=== PATIENT | male | born 1960 | race Caucasian/White ===

== ENCOUNTER 2017-03-13 20:34 | Observation (INO) | payer SELFPAY ==
--- NOTE | 2017-03-13 21:08 | CPEKG ---
Heart Rate: 77 RR Interval: 779 P-R Interval: 164 QRSD Interval: 94 QT Interval: 404 QTC Interval: 458 P Pomeroy: 60 QRS Pomeroy: -51 T Wave Pomeroy: 54 EKG Severity - ABNORMAL ECG - EKG Impression: SINUS RHYTHM EKG Impression: LEFT ANTERIOR FASCICULAR BLOCK Electronically Signed By: Simeon Martinez 14-Mar-2017 10:55:40
--- NOTE | 2017-03-13 21:09 | EDPHY ---
H & P Stated Complaint: HTN HPI/ROS: CHIEF COMPLAINT: Hypertension HISTORY OF PRESENT ILLNESS: Patient complains of elevated blood pressure over the last 2-3 days. He notes a blood pressure as high as 215/130 by his own home cuff. He has had no headache, no chest pain, no shortness of breath. No decrease in urine output. No abdominal pain. No symptoms of any kind. He does felt that the blood pressure was high so he has been checking it. He is on multiple medications that he route of nearly 2 months ago. He does not know exactly which ones they were, but thinks 1 was lisinopril and 1 was labetalol. He does not know the dosing. He does not know what the other ones were. He has no other associated complaints or modifying factors for this. REVIEW OF SYSTEMS: Ten systems reviewed and are negative unless otherwise noted in the HPI PERTINENT MEDICAL HISTORY: Hypertension, off of medications SOCIAL HISTORY: Nonsmoker, nondiabetic EXAMINATION General Appearance: Alert, no distress Head: normocephalic, atraumatic Eyes: Pupils equal and round, no conjunctival pallor or injection. EOMs intact. No nystagmus. ENT, Mouth: Mucous membranes moist Neck: Normal inspection, supple, non-tender Respiratory: Lungs are clear to auscultation. No wheezing, rhonchi or crackles Cardiovascular: Regular rate and rhythm. No murmur. Pulses intact distally. Gastrointestinal: Abdomen is soft and nontender Back: non-tender, no bony abnormalities Neurological: GCS 15. A&O, nonfocal, normal gait. Strength is symmetric in all 4 limbs. No pronator drift. No dysmetria. Symmetric patellar reflexes Skin: Warm and dry, no rash Extremities: Nontender, no pedal edema Psychiatric: Mood and affect normal DIFFERENTIAL DIAGNOSES: Including but not limited to hypertensive urgency, hypertensive emergency, ACS, a KI, electrolyte disturbance, hypervolemia MDM: 9:05 p.m. Hypertension with systolic as high as 230 mm and diastolic as high as 125 mm. At this time is completely asymptomatic. No headache or chest pain. No in cephalopathy on examination. EKG is unremarkable. Laboratory studies are pending. Patient ran out of his medications 9:45 p.m. The troponin is slightly elevated. He is completely asymptomatic and has not had any chest pain of any kind. However, given his hypertensive by his we will treat him as a hypertensive emergency. I have ordered a Rubén pattersonip. Proceed with admission to the hospital, ICU bed. 10:20 p.m. I discussed case with the hospitalist Dr. Anguiano. She will admit the patient to a PCU bed. He is admitted in stable condition with the Cardene drip still being titrated for effect. He still remains asymptomatic. Specifically no chest pain. EKG is unremarkable and interpreted by Dr. Parikh. SUPERVISION: Patient was evaluated in conjunction with the supervising physician. Please see their note for details. Source: Patient Exam Limitations: No limitations - Personal History Current Tetanus/Diphtheria Vaccine: Yes Current Tetanus Diphtheria and Acellular Pertussis (TDAP): Yes - Medical/Surgical History Hx Asthma: Yes Hx Chronic Respiratory Disease: No Hx Diabetes: No Hx Cardiac Disease: No Hx Renal Disease: No Hx Cirrhosis: No Hx Alcoholism: No Hx HIV/AIDS: No Hx Splenectomy or Spleen Trauma: No Other PMH: HTN, CVA 2012, DVT - Social History Smoking Status: Former smoker Constitutional: Initial Vital Signs Temperature (C) 99.3 F 03/13/17 20:36 Heart Rate 79 03/13/17 20:36 Respiratory Rate 14 03/13/17 20:36 Blood Pressure 230/120 H 03/13/17 20:36 O2 Sat (%) 94 03/13/17 20:36 O2 Delivery Mode Nasal Cannula O2 (L/minute) 2 Allergies/Adverse Reactions: No Known Allergies Allergy (Unverified 03/13/17 20:36) Home Medications: Medication Instructions Recorded NK [No Known Home Meds] 03/13/17 Medical Decision Making - Diagnostics Imaging Results: Imaging Impressions Extremity Venous Study 03/13/17 21:17 Impression: 1. No evidence of acute deep vein thrombosis in the right lower extremity. 2. Chronic nonocclusive thrombus in the distal thigh and knee. Results discussed with Jimmy Coulter. - Data Points Laboratory Results: Laboratory Results 03/13/17 21:05 03/13/17 21:05 03/13/17 03/13/17 21:05 21:05 WBC 7.39 10^3/uL 10^3/uL (3.80-9.50) RBC 5.36 10^6/uL 10^6/uL (4.40-6.38) Hgb 16.5 g/dL g/dL (13.7-17.5) Hct 47.9 % % (40.0-51.0) MCV 89.4 fL fL (81.5-99.8) MCH 30.8 pg pg (27.9-34.1) MCHC 34.4 g/dL g/dL (32.4-36.7) RDW 13.9 % % (11.5-15.2) Plt Count 147 10^3/uL L 10^3/uL (150-400) Sodium 143 mEq/L mEq/L (134-144) Potassium 3.6 mEq/L mEq/L (3.5-5.2) Chloride 107 mEq/L mEq/L (97-110) Carbon Dioxide 24 mEq/l mEq/l (22-31) Anion Gap 12 mEq/L mEq/L (8-16) BUN 20 mg/dL mg/dL (7-23) Creatinine 1.3 mg/dL mg/dL (0.7-1.3) Estimated GFR 58 Glucose 109 mg/dL H mg/dL (70-100) Calcium 9.7 mg/dL mg/dL (8.5-10.4) Troponin I 0.043 ng/mL H ng/mL (0-0.034) Medications Given: Discontinued Medications Nicardipine/Sodium Chloride (Cardene 0.1 Mg/Ml (Premix)) 200 mls @ 0 mls/hr IV CONT PARAG; Titrate PRN Reason: Protocol Stop: 09/09/17 21:59 Last Admin: 03/13/17 22:28 Dose: 200 mls Lisinopril (Zestril) 20 mg PO EDNOW ONE Stop: 03/13/17 21:27 Last Admin: 03/13/17 21:35 Dose: 20 mg Departure - Departure Disposition: [facility] In[facility] Acute Clinical Impression: Hypertensive emergency, Elevated troponin Condition: Good Referrals: NONE *PRIMARY CARE P,. [Primary Care Provider] - As per Instructions
[2017-03-13 21:15] LABS: HEMATOCRIT 47.9 % (40.0-51.0); HEMOGLOBIN 16.5 g/dL (13.7-17.5); MEAN CELL HEMOGLOBIN 30.8 pg (27.9-34.1); MEAN CELL HEMOGLOBIN CONCENTR. 34.4 g/dL (32.4-36.7); MEAN CELL VOLUME 89.4 fL (81.5-99.8); RED BLOOD CELL COUNT 5.36 10^6/uL (4.40-6.38); RED CELL DISTRIBUTION WIDTH 13.9 % (11.5-15.2)
[2017-03-13 21:26] LABS: ANION GAP 12 mEq/L (8-16); CALCIUM 9.7 mg/dL (8.5-10.4); CARBON DIOXIDE 24 mEq/l (22-31); CHLORIDE 107 mEq/L (97-110); CREATININE 1.3 mg/dL (0.7-1.3); GLOMERULAR FILTRATION RATE 58; GLUCOSE 109 mg/dL (70-100); POTASSIUM 3.6 mEq/L (3.5-5.2); SODIUM 143 mEq/L (134-144)
[2017-03-13] MEDS ORDERED: LISINOPRIL 20 MG TAB PO ONE (21:26)
[2017-03-13] MEDS ORDERED: LABETALOL HCL 100 MG TAB PO ONE (21:26)
[2017-03-13 21:38] LABS: TROPONIN I 0.043 ng/mL (0-0.034)
[2017-03-13] MEDS: niCARdipine/NACL 200 ML IV SCH ×4 (21:55→23:35)
[2017-03-13] MEDS ORDERED: ONDANSETRON 4 MG/2 ML VIAL IVP PRN (22:17)
[2017-03-13] MEDS ORDERED: ONDANSETRON DISINTEGRATING 4 MG TAB PO PRN (22:17)
[2017-03-13] MEDS ORDERED: ACETAMINOPHEN 325 MG TAB PO PRN (22:17)
--- NOTE | 2017-03-13 23:55 | GHP ---
[f rep st] HISTORY AND PHYSICAL DATE OF ADMISSION: 03/13/2017 CHIEF COMPLAINT: Elevated blood pressure. HISTORY OF PRESENT ILLNESS: A 56-year-old male with long-standing hypertension who presents after c hecking his blood pressures at home and noting they were elevated. The patient was presenting to [facility] emergency department with hopes of getting medication refills. The patient is currently residing in both [place], [place], as well as [place] and has been unable to establish a primary care provid er in either. So, has been away from taking his regular blood pressure medications for many weeks. The patient has been well educated on salt restricted diet, activity, and cardiac health overall. However, has been traveling and unable to attend to medication compliance in between [place] and [facility]. In the emergency department, the patient denies any chest pain, shortness of breath. Has not ed some mild headache. Denies vision changes, dysphagia fevers, chills. Denies abdominal discomfor t, nausea, vomiting, diarrhea, dysuria. Did notice some darkening in his urine but denies any hemat uria. Denies any lower extremity edema. PAST MEDICAL HISTORY: 1. Poorly controlled hypertension. 2. History of stroke without remnant deficits. 3. Dementia. The patient reports is vascular in nature since his stroke. 4. Type 2 diabetes, diet controlled. SOCIAL HISTORY: Negative for tobacco, alcohol. The patient does smoke occasional marijuana. Denie s any stimulant drugs. FAMILY HISTORY: Positive for hypertension and stroke in his mother who in her 50s. ADVANCED DIRECTIVES: Patient is full cor, full tube. His [id number] would be his medical decis ion maker. REVIEW OF SYSTEMS: A 10-point review of systems is negative with the exception of that reported in the HPI. PHYSICAL EXAMINATION: VITAL SIGNS: Blood pressure 217/137, heart rate 75, respiratory rate 18, 96% on room air. GENERAL: This is a healthy-appearing middle-aged male in no acute distress. HEENT: Notable for moist mucous membranes. Eye exam is negative for any icterus. CARDIAC: Patient is re gular rate and rhythm. No murmurs, gallops, or rubs. PULMONARY: Patient has good respiratory effo rt, is clear to auscultation bilaterally. GASTROINTESTINAL: Positive bowel sounds. ABDOMEN: Soft and nontender in all 4 quadrants. MUSCULOSKELETAL: Notable for trace lower extremity edema. SKIN: Exam is negative for any rashes. NEUROLOGIC: Patient is alert and oriented x3. PSYCHIATRIC : He is pleasant and cooperative on interview and examination. DATA: White count 7.3, creatinine 1.3. Troponin 0.043. EKG, which I personally reviewed and interpreted, shows sinus rhythm, leftward axis deviation, with no acute ST-T changes. ASSESSMENT AND PLAN: This is a 56-year-old male presenting with elevated blood pressure. 1. Hypertensive emergency. The patient is presenting with headache and troponin elevation. We do not have baselines to know if he chronically has indeterminate troponins. Must consider this acute end-organ damage until we establish otherwise. Will admit the patient to the PCU, placed on a nicar dipine drip with a goal of systolic blood pressures between 160 and 170. Will start oral labetalol in the morning in hopes of transitioning off the nicardipine on to an oral regimen he can continue a t home. Will trend troponins, check a urinalysis and follow the patient on telemetry. 2. Indeterminate troponin. Patient's EKG is benign. Patient does not have symptoms. Again, will trend his troponins to verify that they are not trending upwards. Can make decisions on additional risk stratification based on his troponin excursion overnight. The patient reports he has had multi ple transthoracic echocardiograms that have not shown any abnormalities. Without symptoms, I do not think we need that imaging overnight. 3. Prophylaxis with Lovenox. DIET: Cardiac. DISPOSITION: I expect in less than 2 midnights if the patient's blood pressures respond well to dri p titration and oral medication initiation. I have discussed the case with the emergency room physi garima. Patient will be triaged to the PCU for nicardipine drip and cardiac monitoring. /[id number]/MODL
[2017-03-14] MEDS: niCARdipine/NACL 200 ML IV SCH ×4 (01:42→07:49)
[2017-03-14 04:11] LABS: ANION GAP 8 mEq/L (8-16); CALCIUM 8.9 mg/dL (8.5-10.4); CARBON DIOXIDE 22 mEq/l (22-31); CHLORIDE 112 mEq/L (97-110); CREATININE 1.1 mg/dL (0.7-1.3); GLOMERULAR FILTRATION RATE > 60; GLUCOSE 102 mg/dL (70-100); POTASSIUM 3.1 mEq/L (3.5-5.2); SODIUM 142 mEq/L (134-144)
[2017-03-14 04:22] LABS: TROPONIN I 0.052 ng/mL (0-0.034)
[2017-03-14 07:46] VITALS: RESP 16
[2017-03-14] MEDS ORDERED: ENOXAPARIN 40 MG/0.4 ML SYR SC SCH (09:00)
[2017-03-14] MEDS ORDERED: LABETALOL HCL 100 MG TAB PO SCH (09:00)
[2017-03-14] MEDS ORDERED: hydrALAZINE 20 MG/ML VIAL IVP PRN (11:35)
[2017-03-14] MEDS ORDERED: POTASSIUM CL 20 MEQ TAB PO ONE (11:37)
[2017-03-14 12:05] VITALS: BP 129/73; PULSE 65; TEMP 98.6; O2SAT 90
[2017-03-14] MEDS ORDERED: REGADENOSON 0.4 MG/5 ML SYR IVP ONE (13:00)
--- NOTE | 2017-03-14 14:51 | CPR ---
[f rep st] NONINVASIVE CARDIAC PROCEDURE REPORT DATE OF PROCEDURE: 03/14/2017 PROCEDURE: Nuclear Lexiscan stress test. REASON FOR TEST: 1. Elevated troponin. 2. Family history of premature coronary artery disease. FINDINGS: Resting blood pressure is 138/74, oxygen saturation 94%. EKG shows a sinus bradycardia with a rate of 57. He has an incomplete right bundle branch block, le ft atrial fascicular block. He is asymptomatic at this time. STRESS PORTION: Lexiscan was injected rapidly followed by saline flush. Cardiolite was then inject ed by saline flush by protocol. He did flush and was short of breath after the injection. He had n o EKG changes. Peak blood pressure 150/80, peak heart rate 84, oxygen saturation 93%. No ischemic changes noticed on the EKG. RECOVERY: He did spontaneously recover. He did have some caffeine, and the symptoms subsided. Fin al blood pressure 140/80, heart rate 80, oxygen saturation 95%. No EKG changes. At this time, he c urrently is stable for nuclear imaging. /[id number]/MODL
--- NOTE | 2017-03-14 15:01 | GDS ---
[f rep st] DISCHARGE SUMMARY DISCHARGE DIAGNOSES: 1. Hypertensive urgency. 2. Mild troponin elevation with normal stress test. 3. Uncontrolled hypertension. HISTORY: This is a 56-year-old male with a history of hypertension. He has not taken medications i n the last several months. He does not have insurance. He came in with headache. HOSPITAL COURSE: Patient did have markedly elevated blood pressures and a positive troponin that wa s mildly elevated. Discs remain flat. With blood pressure control, his headache resolved. He has never had any chest pain. He did undergo stress testing, which was negative. His blood pressures a re good control, will discharge him home. He says that he is usually on 5 different antihypertensives; however, with just labetalol, his blood pressure is down in the 120s. I am going to send him home both on labetalol and lisinopril/hydroch lorothiazide, and he can follow up with [facility] or measure hiss blood pressure regularly. DISPOSITION: Home. DISCHARGE MEDICATIONS: Labetalol and lisinopril. FOLLOWUP INSTRUCTIONS: He is instructed to follow up with [facility]. /[id number]/MODL
[2017-03-14] MEDS ORDERED: PNEUMOCOCCAL 0.5ML VACCINE VIAL IM ONE (16:09)
== END 2017-03-14 16:54 | disposition home or self-care (01) ==
LOC: INTOOBSV 22:17 → F2W 23:04
PROVIDERS: ADMIT Hospitalist; ATTEND Internal Medicine
DX: I16.0 Hypertensive urgency (principal); R79.89 Other specified abnormal findings of blood chemistry; T46.5X6A Underdosing of other antihypertensive drugs, initial encounter; Z91.138 Patient's unintentional underdosing of medication regimen for other reason; I82.531 Chronic embolism and thrombosis of right popliteal vein; E11.9 Type 2 diabetes mellitus without complications; F03.90 Unspecified dementia, unspecified severity, without behavioral disturbance, psychotic disturbance, mood disturbance, and anxiety; Z86.73 Personal history of transient ischemic attack (TIA), and cerebral infarction without residual deficits; Z87.891 Personal history of nicotine dependence; Z23 Encounter for immunization; Z82.49 Family history of ischemic heart disease and other diseases of the circulatory system
CPT/HCPCS: 97165-GO; A9500; G0009; G0378; G8987-GO-CI; G8988-GO-CI; G8989-GO-CI; J1650; J2785